=== PATIENT | female | born 1995 | race Caucasian/White ===

== ENCOUNTER 2019-05-07 01:32 | Inpatient (IN) | payer BC, OTHER ==
[~2019-05-07] VITALS: Ht 167.6 cm; Wt 59.9 kg
--- NOTE | 2019-05-07 01:32 | NUR ---
TO ER BED 5 C/O SOB WITH WHEEZING X1 WEEK. WHEEZING HEARD BILATERALLY ON AUSCULTATION. USED ALBUTEROL INHALER X1 WEEK WITHOUT ANY RELIEF. PT AAOX4, PLACE PT ON CARDIAC MONITORING, CONTINUOUS POX. PENDING ER MD CARDOZA.
--- NOTE | 2019-05-07 01:35 | NUR ---
ER MD AT BEDSIDE TO EVAL PT WITH ORDERS RECEIVED. WILL CARRY OUT ORDERS.
[2019-05-07] MEDS ORDERED: IPRATROPIUM NEB FS 0.5 MG/2.5 ML AMPUL.NEB ONE ×3 (01:49→06:09)
--- NOTE | 2019-05-07 01:51 | NUR ---
RT AT [facility] TO GIVE HHN TX.
[2019-05-07] MEDS ORDERED: ALBUTEROL FS 2.5 MG/0.5 ML VIAL.NEB ONE ×3 (01:52→06:09)
[2019-05-07] MEDS ORDERED: methylPREDNISolone SOD SUCC 125 MG/2ML VIAL ONE (01:53)
--- NOTE | 2019-05-07 01:57 | NUR ---
PT MEDICATED ORDERED.
[2019-05-07] MEDS ORDERED: methylPREDNISolone SOD SUCC 125 MG/2ML VIAL IV ONE (02:00)
[2019-05-07] MEDS ORDERED: IPRATROPIUM NEB FS 0.5 MG/2.5 ML AMPUL.NEB NEB ONE ×3 (02:00→06:30)
[2019-05-07] MEDS ORDERED: ALBUTEROL FS 2.5 MG/3 ML VIAL.NEB NEB ONE (02:00)
[2019-05-07 02:04] LABS: CALCIUM, SERUM 8.9 mg/dL (8.5-10.1); CREATININE 0.8 mg/dL (0.6-1.3); POTASSIUM 3.9 mmol/L (3.5-5.1)
[2019-05-07 02:12] LABS: BASOPHILS # (AUTO) 0.1 /CMM (0.0-0.2); BASOPHILS % (AUTO) 0.4 % (0.0-2.0); EOSINOPHILS % (AUTO) 20.5 % (0.0-6.0); HEMATOCRIT 42 % (33-45); HEMOGLOBIN 13.3 g/dL (11.5-14.8); LYMPHOCYTES # (AUTO) 1.7 /CMM (0.8-4.8); LYMPHOCYTES % (AUTO) 12.9 % (20.0-44.0); MEAN CORPUSCULAR HGB CONC 32 g/dl (31.0-36.0); MEAN CORPUSCULAR VOLUME 88 fL (82-100); MONOCYTES # (AUTO) 0.7 /CMM (0.1-1.30); MONOCYTES % (AUTO) 5.5 % (2.0-12.0); NEUTROPHILS # (AUTO) 8.2 /CMM (1.8-8.9); NEUTROPHILS % (AUTO) 60.7 % (43.0-81.0); PLATELET COUNT (AUTO) 246 /CMM (150-450); RED BLOOD CELL COUNT(AUTO) 4.75 MIL/uL (4.0-5.2); WHITE BLOOD COUNT (AUTO) 13.5 K/uL (4.3-11.0)
--- NOTE | 2019-05-07 02:13 | NUR ---
CALLING RT TO PUT PT ON A CONTINUOUS NEB.
[2019-05-07] MEDS ORDERED: ALBUTEROL FS 2.5 MG/0.5 ML VIAL.NEB NEB ONE ×2 (02:30→06:30)
--- NOTE | 2019-05-07 03:52 | NUR ---
M/S 205-1
--- NOTE | 2019-05-07 04:17 | NUR ---
REPORT CALLED TO M/S AUGUSTINE KUMAR.
--- NOTE | 2019-05-07 05:12 | NUR ---
PT RESTING QUIETLY, NO ACUTE DISTRESS NOTED, RESP EVEN AND UNLABORED. CALL LIGHT WITHIN REACH. WILL CONTINUE TO MONITOR PT CLOSELY.
--- NOTE | 2019-05-07 05:59 | NUR ---
ER MM S[facility] TO [facility] AD[facility]ION. WILL TRANSPORT PT TO ROOM 205-1
--- NOTE | 2019-05-07 06:17 | NUR ---
REPORT UPDATED TO M/S AUGUSTINE KUMAR. WILL TRANSPORT PT TO ROOM 205-1
--- NOTE | 2019-05-07 06:20 | NUR ---
MS RN NOTE PT ARRIVED PT FLOOR VIA GURNEY ACCOMPANIED BY ER STAFF. PT A/O X4, ABLE TO WALK FROM GURNEY TO BED WITH STANDBY ASSIST. NO SIGNS OF SOB OR DISTRESS, NO COMPLAINTS OF PAIN OR N/V. IV IN R AC#[address] S/L. ADMITTING VITALS STABLE, BODY ASSESSED, AND BELONGINGS ACCOUNTED/SIGNED FOR. ALL CURRENT NEEDS ATTENDED TO. BED LOW, LOCKED, UPPER RAILS UP, AND CALL LIGHT WITHIN REACH. WILL CONT. TO MONITOR AND ENDORSE TO NEXT SHIFT FOR GERDA.
[2019-05-07] MEDS ORDERED: ACETAMINOPHEN 325 MG TABLET PO PRN (07:00)
[2019-05-07] MEDS ORDERED: Z GUARD REMEDY 2 OZ OINT TP PRN (07:00)
[2019-05-07] MEDS ORDERED: MAGNESIUM HYDROXIDE 30 ML UDC PO PRN (07:00)
[2019-05-07] MEDS ORDERED: MAG HYDROX/AL HYDROX/SIMETH 30 ML UDC PO PRN (07:00)
[2019-05-07] MEDS ORDERED: ONDANSETRON HCL/PF 4 MG/2 ML VIAL IVP PRN (07:00)
--- NOTE | 2019-05-07 07:15 | NUR ---
MS RN OPENING NOTES RECEIVED PATIENT IN BED ASLEEP, AROUSABLE TO VERBAL AND TACTILE STIMULI. HOB ELEVATED. NO S/S OF RESPIRATORY DISTRESS. ON O2 VIA NC @ 2L/MIN EMIR WELL. BED IN LOWEST POSITION, LOCKED. BED ALARM ON. EMERITA SIDERAILS UP X2. CALL LIGHT WITHIN REACH.
[2019-05-07 07:30] VITALS: BP 131/80
[2019-05-07] MEDS: ALBUTEROL FS 2.5 MG/0.5 ML VIAL.NEB NEB SCH ×4 (08:24→19:46)
[2019-05-07] MEDS: IPRATROPIUM NEB FS 0.5 MG/2.5 ML AMPUL.NEB NEB SCH ×4 (08:24→19:46)
[2019-05-07] MEDS: methylPREDNISolone SOD SUCC 40 MG/ML VIAL IV SCH ×3 (08:34→16:43)
[2019-05-07] MEDS: HYDROCODONE/APAP 5/325MG 1 EACH TABLET PO PRN ×2 (08:37→16:43)
[2019-05-07] MEDS ORDERED: ALBU8.5H8 IH (09:58)
[2019-05-07] MEDS: AZITHROMYCIN 500 MG in IV D5W 250 ML IV SCH (13:57)
--- NOTE | 2019-05-07 14:00 | NUR ---
building services supervisor consult requested by Dr. Tobias for homelessness. Pt is a 23 year old female admitted to [facility] for asthma. SW attempted to meet with pt to conduct social science professor assessment but pt was asleep and SW did not awake. SW will reattempt to assess pt at a later time.
--- NOTE | 2019-05-07 16:43 | NUR ---
Social work consult requested by Dr. Tobias for homelessness. Pt is a 23 year old female who was admitted to [facility] for asthma. Pt was resting in her bed and was oriented x 4 (person, place, time, situation). Pt presented as lethargic and appeared to have difficulties speaking due to a persistent cough. Pt states she has been homeless for 4 years and stays in a homeless encampment located in [place], [place]. Pts emergency contact are her parents, mother Dia Benedict [[phone]]. Pt receives $200 in general relief benefits. Pt was reports using heroin for two years and is motivated to change. SILVANO inquired if pt was interested in substance abuse treatment programs and pt stated yes. SW faxed referral to [[phone]] [facility] [address] [facility] [address]; [phone], attention Brock/Sonya, Intake Coordinators at [facility], SW left voicemail to Sonya at [phone] x [phone]. SILVANO also provided pt with the additional treatment program referrals: [facility]; [phone] and [facility] [address] [place] [address]; [phone]. Pt was also receptive to emergency senior living referrals and SILVANO provided the following: winter senior living [ [facility]; shrimp picker address: [address] [address]], [facility] [address] [place] [address]; , [facility] [address] [place] [address]; , and [facility] [address] [place] [address]; . [facility] Homeless Resources Directory and health and mental health clinic referrals were also provided. Pt denies suicidal and homicidal ideation at this time. Pt has signed homeless waiver and it has been placed in her medical chart. Pt will require a TAP card upon discharge. No other services needed at this time. SW is available if needed.
[2019-05-07] MEDS: LORAZEPAM INJ 2 MG/ML VIAL IV PRN (18:01)
--- NOTE | 2019-05-07 19:00 | NUR ---
MS RN CLOSING NOTES PATIENT RESTING COMFORTABLY IN BED. HOB ELEVATED. NO SOB. DENIES ANY C/O PAIN NOR DISCOMFORT AT THIS TIME. ON O2 VIA NC @ 2L/MIN EMIR WELL. RIGHT AC # 18 INTACT AND PATENT. BED IN LOWEST POSITION, LOCKED. BED ALARM ON. BED SIDERAILS UP X2. CALL LIGHT WITHIN REACH. IN NO APPARENT DISTRESS.
--- NOTE | 2019-05-07 19:30 | NUR ---
MS RN OPENING NOTE RECEIVED PATIENT IN BED. A/O X4. ON OXYGEN 2L/MIN VIA NASAL CANNULA. RESPIRATIONS ARE EVEN AND UNLABORED. NO S/S SOB NOTED. DENIES PAIN AT THIS TIME. IN NO APPARENT DISTRESS. IV ACCESS IN RAC#18 PATENT AND SALINE LOCKED. BED IS LOW AND LOCKED, HOB ELEVATED, SIDE RIALS UP X2, BED ALARM ON. CALL LIGHT WITHIN REACH. WILL CONTINUE TO MONITOR.
[2019-05-07 20:00] VITALS: BP 121/59
[2019-05-07 20:06] VITALS: BP 121/59
[2019-05-08] MEDS: HYDROCODONE/APAP 5/325MG 1 EACH TABLET PO PRN ×4 (00:53→20:19)
[2019-05-08 07:02] LABS: BASOPHILS % (AUTO) 0.2 % (0.0-2.0); HEMATOCRIT 34 % (33-45); HEMOGLOBIN 11.4 g/dL (11.5-14.8); LYMPHOCYTES # (AUTO) 1.3 /CMM (0.8-4.8); LYMPHOCYTES % (AUTO) 8.3 % (20.0-44.0); MEAN CORPUSCULAR HGB CONC 33 g/dl (31.0-36.0); MEAN CORPUSCULAR VOLUME 87 fL (82-100); MONOCYTES # (AUTO) 0.8 /CMM (0.1-1.30); MONOCYTES % (AUTO) 4.7 % (2.0-12.0); NEUTROPHILS % (AUTO) 86.8 % (43.0-81.0); PLATELET COUNT (AUTO) 244 /CMM (150-450); RED BLOOD CELL COUNT(AUTO) 3.97 MIL/uL (4.0-5.2); WHITE BLOOD COUNT (AUTO) 16.2 K/uL (4.3-11.0)
[2019-05-08 07:03] LABS: CREATININE 0.5 mg/dL (0.6-1.3); MAGNESIUM 1.9 mg/dL (1.8-2.4); PHOSPHORUS 3.9 mg/dL (2.5-4.9); POTASSIUM 4.2 mmol/L (3.5-5.1)
[2019-05-08 07:10] LABS: THYROID STIMULATING HORMONE 0.12 uIU/mL (0.358-3.74)
--- NOTE | 2019-05-08 07:12 | NUR ---
MS RN OPENING NOTES RECEIVED PATIENT ASLEEP IN BED, AROUSABLE TO VERBAL AND TACTILE STIMULI. HOB ELEVATED. NO SOB NOTED. DENIES ANY C/O PAIN NOR DISCOMFORT AT THIS TIME. RIGHT AC # 18 SL INTACT AND PATENT. ON O2 VIA NC @ 2L/MIN EMIR WELL. BED IN LOWEST POSITION, LOCKED. BED ALARM ON. BED SIDERAILS UP X2. CALL LIGHT WITHIN REACH.
--- NOTE | 2019-05-08 07:24 | NUR ---
MS RN CLOSING NOTE PATIENT IN BED. A/O X4. REMAINS ON OXYGEN 2L/MIN VIA NASAL CANNULA. RESPIRATIONS ARE EVEN AND UNLABORED. NO SOB NOTED. MANAGED PAIN WITH NORCO. NO DISTRESS NOTED. IV ACCESS MAINTAINED IN RAC#18 PATENT AND SALINE LOCKED. BED REMIANS LOW AND LOCKED, HOB ELEVATED, SIDE RIALS UP X2, BED ALARM ON. CALL LIGHT WITHIN REACH. WILL ENDORSE TO NEXT SHIFT.
[2019-05-08 07:30] VITALS: BP 123/67
[2019-05-08] MEDS: IPRATROPIUM NEB FS 0.5 MG/2.5 ML AMPUL.NEB NEB SCH ×4 (08:05→20:10)
[2019-05-08] MEDS: ALBUTEROL FS 2.5 MG/0.5 ML VIAL.NEB NEB SCH ×4 (08:05→20:10)
[2019-05-08] MEDS: methylPREDNISolone SOD SUCC 40 MG/ML VIAL IV SCH ×3 (08:21→16:37)
--- NOTE | 2019-05-08 10:25 | NUR ---
MS RN NOTES RECEIVED A CALL FROM DAVEY FROM [facility] REGARDING DETOX FOR PATIENT, INFORMED DAVEY THAT PATIENT USES HEROIN.
[2019-05-08] MEDS: LORAZEPAM INJ 2 MG/ML VIAL IV PRN ×3 (10:43→22:01)
--- NOTE | 2019-05-08 11:00 | NUR ---
MS RN NOTES SEEN BY DR. HERNANDEZ, PATIENT COMPLAINED OF COUGH AND REQUESTING COUGH SYRUP, PER MD, WANTS PATIENT TO COUGH OUT PHLEGM/SECRETIONS AND ADDED MUCOMYST. NOTED AND CARRIED OUT
[2019-05-08] MEDS: AZITHROMYCIN 500 MG in IV D5W 250 ML IV SCH (13:32)
--- NOTE | 2019-05-08 13:59 | NUR ---
KENDRICK received a call from Delmis from [facility] x [phone] requesting for OIL DELIVERER to fax clinicals stating pt. is a heroin user. KENDRICK faxed requested document to Delmis at .
[2019-05-08] MEDS: ACETYLCYSTEINE 20% SOLN 800 MG/4 ML VIAL NEB SCH ×2 (15:45→23:30)
--- NOTE | 2019-05-08 15:45 | NUR ---
KENDRICK received a call from Delmis at [facility] informing DYE STAND LOADER, pt has been accepted to their facility and to have pt. there by wes, located at [address] [place] [address] Pt will require taxi transportation to the facility. KENDRICK met with the pt. bedside to inform her of the acceptance. Pt now states she is not sure because she wants her boyfriend to go to treatment with her. DYE STAND LOADER informed pt. if she decides to go to treatment a taxi voucher will be provided. Otherwise, pt has been provided homeless senior care and resources by social contact worker Magdalena. KENDRICK updated AUGUSTINE Robbins in case management.
[2019-05-08] MEDS: ENSURE ENLIVE 237 ML LIQUID (VANILLA) PO SCH (16:41)
--- NOTE | 2019-05-08 19:24 | NUR ---
MS RN CLOSING NOTE ALERT AND ORIENTED X4. NO S/S OF RESPIRATORY DISTRESS.D EMIR ROOM AIR WITH SPO2 95%. DENIES ANY C/O PAIN NOR DISCOMFORT AT THIS TIME. RAC#18 SL INTACT AND PATENT. BED IS LOWEST POSITION, LOCKED. BED SIDE RIALS UP X2. BED ALARM ON. CALL LIGHT WITHIN REACH. IN NO APPARENT DISTRESS.
--- NOTE | 2019-05-08 20:00 | NUR ---
RN NOTES PM SHIFT PATIENT ALERT AND ORIENTED X4, COMPLAINING OF CHEST PAIN DUE TO COUGHING, ON 2LPM VIA NC, WHEEZING ON EXPIRATION, ASTHMA EXACERBATION, BREATHING TREATMENT SCHEDULED, INDEPENDENT OF ADLS, AMBULATES, VOIDING SPONTANEOUSLY, KEPT SAFE, WILL CONTINUE TO MONITOR.
[2019-05-08 20:13] VITALS: BP 126/69
[2019-05-09] MEDS: LORAZEPAM INJ 2 MG/ML VIAL IV PRN ×3 (02:52→14:24)
--- NOTE | 2019-05-09 06:44 | NUR ---
RN NOTES PM SHIFT PATIENT ALERT AND ORIENTED X4, ON 2LPM VIA NC, WHEEZING ON EXPIRATION, DRY COUGH, CHEST PAIN DUE TO COUGHING, BREATHING TX SCHEDULED, GIVEN ATIVAN X2 FOR ANXIETY AND NORCO 1 TAB. INDEPENDENT WITH AMBULATION AND SELF CARE, FOR PLACEMENT TO [facility], AWAITING APPROVAL.
[2019-05-09] MEDS: ALBUTEROL FS 2.5 MG/0.5 ML VIAL.NEB NEB SCH ×3 (07:35→15:30)
[2019-05-09] MEDS: ACETYLCYSTEINE 20% SOLN 800 MG/4 ML VIAL NEB SCH ×2 (07:35→15:30)
[2019-05-09] MEDS: IPRATROPIUM NEB FS 0.5 MG/2.5 ML AMPUL.NEB NEB SCH ×3 (07:35→15:30)
--- NOTE | 2019-05-09 07:40 | NUR ---
RN MS NOTES PT IN BED, ASLEEP, NO SIGN OF PAIN OR DISTRESS, CALL LIGHT WITHIN REACH.
[2019-05-09 08:00] VITALS: BP 106/71
[2019-05-09] MEDS: HYDROCODONE/APAP 5/325MG 1 EACH TABLET PO PRN ×2 (08:20→16:21)
[2019-05-09] MEDS: methylPREDNISolone SOD SUCC 40 MG/ML VIAL IV SCH ×2 (08:20→13:12)
[2019-05-09] MEDS: ENSURE ENLIVE 237 ML LIQUID (VANILLA) PO SCH (08:20)
--- NOTE | 2019-05-09 10:49 | NUR ---
RN MS NOTES PT SEEN BY DR. HERNANDEZ, PLAN OF CARE DISCUSSED WITH PT, VERBALIZED UNDERSTANDING, DISCHARGE PRESCRIPTIONS PROVIDED BY .
[2019-05-09] MEDS: AZITHROMYCIN 500 MG in IV D5W 250 ML IV SCH (13:12)
[2019-05-09 16:00] VITALS: BP 100/60
--- NOTE | 2019-05-09 16:42 | NUR ---
RN MS NOTES PT IN BED, AWAKE, ALERT AND ORIENTED, PAIN MEDS GIVEN FOR PAIN MANAGEMENT, NOT IN DISTRESS, DUE MEDS GIVEN ORDERED, PT ABLE TO AMBULATE WITH STEADY GAIT IN HER ROOM, SEEN BY DR. HERNANDEZ, DISCHARGE PLAN DISCUSSED WITH PT, VERBALIZED UNDERSTANDING, DISCHARGE ORDER GIVEN, MEDICATION AND DISCHARGE INSTRUCTIONS GIVEN TO PT, VERBALIZED UNDERSTANDING, ASKED PT IF SHE IS INTERESTED IN GOING TO A DETOX FACILITY OR A [facility], PT REFUSED, DISCUSSED BENEFITS BUT STILL REFUSED, PT SIGNED HOMELESS WAIVER, IN PT'S CHART, NEW PRESCRIPTION CALLED IN TO [facility] IN [place], PER PHARMACY IT WILL BE AVAILABLE FOR CHARCOAL KILN BURNER IN 1 HOUR, PT INFORMED AND PROVIDED WITH [facility] ADDRESS AND PHONE NUMBER, RT OFFERED TO ADMINISTER BREATHING TREATMENT BEFORE SHE LEAVES, PT REFUSED, STATED SHE WANTS TO GO, BELONGINGS ACCOUNTED FOR, INSTRUCTED PT TO RETURN TO E.R. IN CASE OF EMERGENCY, OFFERED TO PROVIDE PT WITH A SWEATER, PT REFUSED, BUS TAP CARD PROVIDED TO PT, VITAL SIGNS STABLE, ASSISTED PT TO HOSPITAL LOBBY BY BRILLIANDEER LOPPER VIA WHEELCHAIR, LEFT IN STABLE CONDITION.
== END 2019-05-09 16:42 | disposition home or self-care (01) | DRG 189 ==
LOC: ER 01:35 → MEDSG2 06:08
PROVIDERS: ADMIT Internal Medicine; ATTEND Internal Medicine
DX: J96.01 Acute respiratory failure with hypoxia (principal); J45.901 Unspecified asthma with (acute) exacerbation; J20.9 Acute bronchitis, unspecified; Z79.51 Long term (current) use of inhaled steroids; F11.10 Opioid abuse, uncomplicated
CPT/HCPCS: 36415; 71045-TC; 80048-TC; 80061-TC; 83735-TC; 84100-TC; 84443-TC; 84703-TC; 85025-TC; 87081-TC; 94799-TC; 97116-TC; 97530-TC; G0378; J0456; J2060; J2920; J2930; J7060